=== PATIENT | male | born 1970 | race Caucasian/White ===

== ENCOUNTER 2016-04-21 16:42 | Emergency (ER) | payer SELFPAY ==
[2016-04-21 16:54] VITALS: BP 161/78
[2016-04-21] MEDS ORDERED: HYDROXYZINE PAMOATE 25 MG CAPSULE PO ONE (17:15)
[2016-04-21 17:28] LABS: BASO # 0.1 x10^3/uL (0.0-0.2); BASO % 1 % (0-3); EOS % 3 % (0-3); HEMATOCRIT 42.8 % (39.0-53.0); HEMOGLOBIN 14.3 g/dL (13.0-17.5); LYMPH # 2.5 x10^3/uL (1.0-4.8); LYMPH % 23 % (24-48); MEAN CORPUSCULAR HEMOGLOBIN 29 pg (25-35); MEAN CORPUSCULAR HGB CONC 33 g/dL (31-37); MEAN CORPUSCULAR VOLUME 86 fL (79-100); MONO % 12 % (0-9); NEUT % 62 % (31-73); PLATELET COUNT 296 x10^3/uL (140-400); RED BLOOD COUNT 4.96 x10^6/uL (4.30-5.70); RED CELL DISTRIBUTION WIDTH 14.1 % (11.5-14.5); WHITE BLOOD COUNT 10.8 x10^3/uL (4.0-11.0)
--- NOTE | 2016-04-21 17:37 | PHYS DOC ---
Past Medical History Past Medical History: No Pertinent History Past Surgical History: No Surgical History Alcohol Use: None Drug Use: Methamphetamine Adult General Chief Complaint Chief Complaint: MULTIPLE COMPLAINTS HPI HPI Patient is a 46 year old male presents emergency department stating that he has blurred vision in his right eye. He states that he is having sharp pains in his body. He states that he is having left ear pain and discomfort. He stating he is having dental pain as well. Patient states that he was able to ride his bike last night although today he's not been able to really ride because of his pains and discomfort. He denies any fever, chills or any nausea vomiting. Girlfriend at bedside states that he is not acting himself and does not act quite right. Patient denies any further symptoms at this time. According to the nurse's notes patient was also complaining of lower leg pain and discomfort complaints of discomfort noted upon my history and physical. Review of Systems Review of Systems Constitutional: Denies fever or chills [] Eyes: Denies change in visual acuity, redness, or eye pain. C/o blurred left eye HENT: Denies nasal congestion or sore throat [] Respiratory: Denies cough or shortness of breath [] Cardiovascular: No additional information not addressed in HPI [] GI: Denies abdominal pain, vomiting, bloody stools or diarrhea. C/o nausea with foul taste in the mouth[] : Denies dysuria or hematuria [] Musculoskeletal: Denies back pain or joint pain. Generalized sharp pain throughout upper body Integument: Denies rash or skin lesions [] Neurologic: Denies headache, focal weakness or sensory changes [] Current Medications Current Medications Current Medications Medications (Trade) Dose Ordered Sig/[facility] Start Time Stop Time Status Last Admin Dose Admin Hydroxyzine Pamoate (Vistaril) 25 mg 1X ONCE 04/21/16 17:15 04/21/16 17:16 DC 04/21/16 17:40 25 MG Allergies Allergies Allergies Coded Allergies Type Severity Reaction Last Updated Verified Penicillins Allergy Intermediate 04/21/16 Yes Physical Exam Physical Exam Constitutional: Well developed, well nourished, no acute distress, non-toxic appearance. [] HENT: Normocephalic, atraumatic, bilateral external ears normal, oropharynx moist, no oral exudates, nose normal. Right tympanic membrane was normal. Tympanic membrane appears to be red. Throat appears to be without erythematous drainage or discharge no exudate noted. Patient does appear to have multiple rotten teeth. Eyes: PERRLA, EOMI, conjunctiva normal, no discharge. [] Neck: Normal range of motion, no tenderness, supple, no stridor. [] Cardiovascular:Heart rate regular rhythm, no murmur [] Lungs & Thorax: Bilateral breath sounds clear to auscultation [] Abdomen: Bowel sounds normal, soft, no tenderness, no masses, no pulsatile masses. [] Skin: Warm, dry, no erythema, no rash. [] Back: No tenderness Extremities: No tenderness, no cyanosis, no clubbing, ROM intact, no edema. [] Neurologic: Alert and oriented X 3, normal motor function, normal sensory function, no focal deficits noted. [] Psychologic: Affect normal, judgement normal, mood normal. Patient appears to be very agitated and is unable to sit still. Current Patient Data Vital Signs Vital Signs Date Time Temp Pulse Resp B/P Pulse Ox O2 Delivery O2 Flow Rate FiO2 04/21/16 16:54 98.6 98 14 161/78 98 Room Air 98.6 Lab Values Laboratory Tests Test 04/21/16 17:20 04/21/16 17:25 White Blood Count 10.8x10^3/uL (4.0-11.0) Red Blood Count 4.96x10^6/uL (4.30-5.70) Hemoglobin 14.3g/dL (13.0-17.5) Hematocrit 42.8% (39.0-53.0) Mean Corpuscular Volume 86fL (79-100) Mean Corpuscular Hemoglobin 29pg (25-35) Mean Corpuscular Hemoglobin Concent 33g/dL (31-37) Red Cell Distribution Width 14.1% (11.5-14.5) Platelet Count 296x10^3/uL (140-400) Neutrophils (%) (Auto) 62% (31-73) Lymphocytes (%) (Auto) 23% (24-48) L Monocytes (%) (Auto) 12% (0-9) H Eosinophils (%) (Auto) 3% (0-3) Basophils (%) (Auto) 1% (0-3) Neutrophils # (Auto) 6.7x10^3uL (1.8-7.7) Lymphocytes # (Auto) 2.5x10^3/uL (1.0-4.8) Monocytes # (Auto) 1.2x10^3/uL (0.0-1.1) H Eosinophils # (Auto) 0.3x10^3/uL (0.0-0.7) Basophils # (Auto) 0.1x10^3/uL (0.0-0.2) Sodium Level 141mmol/L (136-145) Potassium Level 4.1mmol/L (3.5-5.1) Chloride Level 103mmol/L (98-107) Carbon Dioxide Level 29mmol/L (21-32) Anion Gap 9 (6-14) Blood Urea Nitrogen 22mg/dL (8-26) Creatinine 1.2mg/dL (0.7-1.3) Estimated GFR (Cockcroft-Gault) 65.8 BUN/Creatinine Ratio 18 (6-20) Glucose Level 121mg/dL (70-99) H Calcium Level 9.8mg/dL (8.5-10.1) Total Bilirubin 0.9mg/dL (0.2-1.0) Aspartate Amino Transferase (AST) 81U/L (15-37) H Alanine Aminotransferase (ALT) 64U/L (16-63) H Alkaline Phosphatase 74U/L (46-116) Total Protein 8.4g/dL (6.4-8.2) H Albumin 4.2g/dL (3.4-5.0) Albumin/Globulin Ratio 1.0 (1.0-1.7) Urine Opiates Screen Neg (NEG) Urine Methadone Screen Neg (NEG) Urine Barbiturates Neg (NEG) Urine Phencyclidine Screen Neg (NEG) Urine Amphetamine/Methamphetamine Pos (NEG) Urine Benzodiazepines Screen Neg (NEG) Urine Cocaine Screen Neg (NEG) Urine Cannabinoids Screen Neg (NEG) Urine Ethyl Alcohol Neg (NEG) Laboratory Tests 04/21/16 17:20 Laboratory Tests 04/21/16 17:20 EKG EKG [] Radiology/Procedures Radiology/Procedures [][facility] [address] [place] [address] IMAGING REPORT Signed PATIENT: SPENCER SIM ACCOUNT: [id number] : 1970 LOCATION: ER AGE: 46 SEX: M EXAM STATUS: REG ER ORD. PHYSICIAN: ROSELINE LEHMAN NP REASON: left eye blurry PROCEDURE: HEAD WO CONTRAST PROCEDURE CT head without intravenous contrast. HISTORY Left eye blurriness. TECHNIQUE Axial images are obtained of the head from the skull base through the vertex without IV contrast Exposure: One or more of the following individualized dose reduction techniques were utilized for this examination: 1. Automated exposure control. 2. Adjustment of the mA and/or kV according to patient size. 3. Use of iterative reconstruction technique. COMPARISON None. FINDINGS The ventricles are appropriate in size, shape, and location for the patient's age.No obvious intracranial mass, mass-effect, midline shift, hemorrhage or obvious acute infarction is identified.Basilar cisterns are patent. Bone windows demonstrate no acute calvarial abnormality.The visualized paranasal sinuses appear clear. IMPRESSION No acute intracranial process. Please note that CT can be relatively insensitive to acute ischemic infarction for up to 24 hours after symptom onset. Electronically signed by: Moses Nazario MD (Apr 21, 2016 17:43:30) DICTATED and SIGNED BY: MOSES NAZARIO MD DATE: 04/21/161742 CC: ROSELINE LEHMAN [employer]ES [employer]; NO PCP ~ Course & Med Decision Making Course & Med Decision Making Pertinent Labs and Imaging studies reviewed. (See chart for details) CBC, CMP was within normal limits. Urinalysis was positive for methamphetamines. Patient states that he was around people that were smoking it and feels that he is testing positive for being around others. Patient currently does not appear to have any difficulty with his vision's. Patient is alert and oriented. He still continues to be very agitated. He continues to state that he has not used drugs. Patient will be discharged home with friend. Spoke with patient regards to avoidance of methamphetamines. Signs and symptoms to return back to emergency department and been provided. Patient will be discharged home in stable condition. Explained to patient that he did not have a dental infection. Patient is insistent that he has to have antibiotics because he still feels he has a dental infection. Patient was provided with clindamycin although it was reemphasized that he does not have a dental infection. [] Dragon Disclaimer Dragon Disclaimer This electronic medical record was generated, in whole or in part, using a voice recognition dictation system. Departure Departure Impression: Primary Impression: Methamphetamine abuse Disposition: HOME, SELF-CARE Condition: STABLE Referrals: NO PCP (PCP) Patient Instructions: Methamphetamine Abuse, Complications Additional Instructions: Activity as tolerated Medication as prescribed Avoid methamphetamines Followup with primary care provider in 3-5 days Return to the emergency department as needed for signs and symptoms that become worse. Scripts Clindamycin Hcl 150 Mg Capsule3 Cap PO TID 10 Days Prov:ROSELINE LEHMAN NP 04/21/16 Hydroxyzine Pamoate (Vistaril)50 Mg Capsule1 Cap PO TID PRN ANXIETY / AGITATION #20 CAP Prov:ROSELINE LEHMAN NP 04/21/16 ROSELINE LEHMAN NP Apr 21, 2016 17:37
[2016-04-21 17:44] LABS: CALCIUM 9.8 mg/dL (8.5-10.1); CREATININE 1.2 mg/dL (0.7-1.3); GFR 65.8; POTASSIUM 4.1 mmol/L (3.5-5.1)
--- NOTE | 2016-04-21 17:44 | RAD ---
PROCEDURE CT head without intravenous contrast. HISTORY Left eye blurriness. TECHNIQUE Axial images are obtained of the head from the skull base through the vertex without IV contrast Exposure: One or more of the following individualized dose reduction techniques were utilized for this examination: 1. Automated exposure control. 2. Adjustment of the mA and/or kV according to patient size. 3. Use of iterative reconstruction technique. COMPARISON None. FINDINGS The ventricles are appropriate in size, shape, and location for the patient's age.No obvious intracranial mass, mass-effect, midline shift, hemorrhage or obvious acute infarction is identified.Basilar cisterns are patent. Bone windows demonstrate no acute calvarial abnormality.The visualized paranasal sinuses appear clear. IMPRESSION No acute intracranial process. Please note that CT can be relatively insensitive to acute ischemic infarction for up to 24 hours after symptom onset. Electronically signed by: Chuck Nazario MD (Apr 21, 2016 17:43:30)
[2016-04-21 17:46] LABS: BARBITURATES NEG (NEG); BENZODIAZEPINES NEG (NEG); CANNABINOIDS NEG (NEG); COCAINE NEG (NEG); METHADONE NEG (NEG); OPIATES NEG (NEG); PHENCYCLIDINE NEG (NEG)
[2016-04-21 17:53] LABS: ETHANOL, URINE NEG (NEG)
[2016-04-21 17:57] LABS: ALBUMIN 4.2 g/dL (3.4-5.0); TOTAL BILIRUBIN 0.9 mg/dL (0.2-1.0); TOTAL PROTEIN 8.4 g/dL (6.4-8.2)
[2016-04-21] MEDS ORDERED: HYDR50CA PO (18:06)
[2016-04-21] MEDS ORDERED: CLIN-44 PO (18:16)
== END 2016-04-21 18:27 | disposition home or self-care (01) ==
LOC: ER 16:42
DX: F15.10 Other stimulant abuse, uncomplicated (principal); M79.1 Myalgia; H92.02 Otalgia, left ear; R45.1 Restlessness and agitation; K08.89 Other specified disorders of teeth and supporting structures; Z88.0 Allergy status to penicillin
CPT/HCPCS: 36415; 70450; 80053; 85027; 99285; G0481; Q0177